=== PATIENT | male | born 1980 | race African-American/Black ===

== ENCOUNTER 2018-08-29 21:39 | Emergency (ER) | payer BC ==
[2018-08-29 21:44] VITALS: BP 136/89
--- NOTE | 2018-08-29 21:53 | UC ---
Throat Pain/Nasal Nikhil HPI - HPI Summary HPI Summary: 38 yo male presents with sore throat, sinus pain/pressure/congestion, and body aches for 2 days. He tells me that today he noticed his tonsils were enlarged and he had white spots on them. He has been taking sudafed and ibuprofen with mild relief of his symptoms. He mentions that he used to get tonsillitis a lot when he was younger, but has not had issues since that time. Denies cough, SOB, rash, abdominal pain, n/v. - History of Current Complaint Chief Complaint: UCRespiratory Stated Complaint: SORE THROAT Time Seen by Provider: 08/29/18 21:52 Hx Obtained From: Patient Onset/Duration: Gradual Onset Severity: Severe Pain Intensity: 9 Pain Scale Used: 0-10 Numeric - Allergies/Home Medications Allergies/Adverse Reactions: Allergies Allergy/AdvReac Type Severity Reaction Status Date / Time No Known Allergies Allergy Verified 08/29/18 21:44 Home Medications: Home Medications Ibuprofen TAB* [Advil TAB*] 600 mg PO ONCE PRN 08/29/18 [History Confirmed 08/29] Multivitamin [Multivitamins] 1 cap PO DAILY 08/29/18 [History Confirmed 08/29/18 ] PMH/Surg Hx/FS Hx/Imm Hx - Additional Past Medical History Additional PMH: None - Surgical History Surgical History: Yes Surgery Procedure, Year, and Place: RIGHT KNEE SURGERY 2007, BACK SURGERY 2007 - Family History Known Family History: Positive: Hypertension - Social History Occupation: Employed Full-time Lives: With Family Alcohol Use: Occasionally Substance Use Type: None Smoking Status (MU): Current Every Day Smoker Type: Cigarettes Amount Used/How Often: 1/3 PPD Review of Systems All Other Systems Reviewed And Are Negative: Yes Constitutional: Positive: Other - Body aches Skin: Positive: Negative Eyes: Positive: Negative ENT: Positive: Sore Throat, Nasal Discharge, Sinus Congestion, Sinus Pain/ Tenderness Respiratory: Positive: Negative Cardiovascular: Positive: Negative Gastrointestinal: Positive: Negative Neurovascular: Positive: Negative Neurological: Positive: Negative Psychological: Positive: Negative Physical Exam - Summary Physical Exam Summary: GENERAL: NAD. WDWN. No pain distress. SKIN: No rashes, sores, lesions, or open wounds. HEENT: Head: AT/NC Eyes: Conjunctiva clear without inflammation or discharge. Ears: Hearing grossly normal. TMs intact, no bulging, erythema, or edema. Nose: Nasal mucosa pink and moist with clear rhinorrhea. NTTP maxillary and frontal sinus. Throat: Posterior oropharynx moderate erythema and 2+ tonsillar enlargement. Moderate diffuse exudates. Uvula midline. No hoarse voice or muffled voice. NECK: Supple. Nontender. No lymphadenopathy. CHEST: CTAB. No r/r/w. No accessory muscle use. Breathing comfortably and in no distress. CV: RRR. Without m/r/g. Pulses intact. Cap refill <2seconds NEURO: Alert. PSYCH: Age appropriate behavior. Triage Information Reviewed: Yes Vital Signs: Initial Vital Signs Temp 99.7 F 08/29/18 21:40 Pulse 94 08/29/18 21:40 Resp 20 08/29/18 21:40 BP 136/89 08/29/18 21:40 Pulse Ox 100 08/29/18 21:40 Laboratory Tests 08/29/18 22:04 Group A Strep Rapid Negative Vital Signs Reviewed: Yes Throat Pain/Nasal Course/Dx - Course Course Of Treatment: POC strep negative. Suspect tonsillitis. Discussed viral vs bacterial causes with the pt and he prefers to be on anbx at this time. - Differential Dx/Diagnosis Provider Diagnosis: Tonsillitis Discharge - Sign-Out/Discharge Documenting (check all that apply): Patient Departure All imaging exams completed and their final reports reviewed: No Studies - Discharge Plan Condition: Stable Disposition: HOME Prescriptions: Amoxicillin PO (*) [Amoxicillin 875 MG (*)] 875 mg PO BID #14 tab Patient Education Materials: Tonsillitis (ED) Forms: *Work Release Referrals: No Primary Care Phys,NOPCP [Primary Care Provider] - Additional Instructions: If you develop a fever, shortness of breath, chest pain, new or worsening symptoms - please call your PCP or go to the ED immediately. Your blood pressure was high at todays visit. Please see your primary provider within 4 weeks for recheck and re-evaluation. - Billing Disposition and Condition Condition: STABLE Disposition: Home
[2018-08-29] MEDS ORDERED: Amoxicillin PO (*) 500 MG CAP PO ONE (22:00)
== END 2018-08-29 22:23 | disposition home or self-care (01) ==
LOC: UCEAST 21:39
DX: J03.90 Acute tonsillitis, unspecified (principal); F17.210 Nicotine dependence, cigarettes, uncomplicated
CPT/HCPCS: 87070; 87651; 99202; A9270-GY; G0463

== ENCOUNTER 2018-11-06 23:29 | Emergency (ER) | payer BC ==
[2018-11-06 23:37] VITALS: BP 143/97
== END 2018-11-07 00:20 | disposition left against medical advice (07) ==
LOC: ED 23:29
DX: Z53.21 Procedure and treatment not carried out due to patient leaving prior to being seen by health care provider (principal)